=== PATIENT | female | born 1985 | race Caucasian/White ===

== ENCOUNTER 2017-11-26 16:53 | Emergency (ER) | payer BC, OTHER ==
[2017-11-26] MEDS ORDERED: Sodium Chloride 0.9% 10 ML Syringe FLUSH PRN (17:26)
--- NOTE | 2017-11-26 18:06 | EDM.PDOC ---
ED HPI GENERAL MEDICAL PROBLEM - General Chief Complaint: Neurological Problem Stated Complaint: NUMBNESS LEFT ARM/FACE Time Seen by Provider: 11/26/17 17:16 Source of Information: Reports: Patient History Limitations: Reports: No Limitations - History of Present Illness INITIAL COMMENTS - FREE TEXT/NARRATIVE: 32 y/o F with left arm numbness and left face numbness. Started around 3:30pm while she was watching TV. [place] tingling/numbness in L arm and L face. Also felt like her arm was mildly weak. Symptoms have now completely resolved. She states she's had intermittent total body numbness over the past 2 months. Comes and goes, no provoking factor. No additional weakness. States she had a two week period of blurry vision in early August that also resolved. No fever. No headache. No neck pain. No chest pain/sob/palpitations. No extremity pain. Went to clinic today with her L arm numbness and was referred here for further care. 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 Other OB/BYN History: surgical procedure Musculoskeletal History: Reports: Other (See Below) Other Musculoskeletal History: right foot surgery Endocrine/Metabolic History: Reports: Hypothyroidism - Infectious Disease History Infectious Disease History: Reports: Other (See Below) Other Infectious Disease History: HSV Social & Family History - Tobacco Use Smoking Status *Q: Never Smoker - Caffeine Use Caffeine Use: Reports: Coffee, Soda, Tea - Recreational Drug Use Recreational Drug Use: No ED ROS GENERAL - Review of Systems Review Of Systems: See Below Constitutional: Denies: Fever HEENT: Reports: Vision Change Respiratory: Denies: Shortness of Breath Cardiovascular: Denies: Chest Pain Endocrine: Reports: No Symptoms GI/Abdominal: Reports: No Symptoms : Reports: No Symptoms Musculoskeletal: Denies: Neck Pain Skin: Reports: No Symptoms Neurological: Reports: Numbness, Tingling. Denies: Headache Psychiatric: Reports: No Symptoms Hematologic/Lymphatic: Reports: No Symptoms Immunologic: Reports: No Symptoms ED EXAM, NEURO - Physical Exam Exam: See Below Exam Limited By: No Limitations General Appearance: Alert, WD/WN, No Apparent Distress Eye Exam: Bilateral Eye: EOMI, Normal Inspection, PERRL Ears: Normal External Exam Nose: Normal Inspection Throat/Mouth: Normal Inspection, Normal Oropharynx, Normal Voice, No Airway Compromise Head Exam: Atraumatic, Normocephalic Neck: Normal Inspection, Supple, Non-Tender, Full Range of Motion Respiratory/Chest: No Respiratory Distress, Lungs Clear, Normal Breath Sounds, Chest Non-Tender Cardiovascular: Normal Peripheral Pulses, Regular Rate, Rhythm, No Edema, No Murmur GI/Abdominal: Normal Bowel Sounds, Soft, Non-Tender Neurological: Alert, Normal Mood/Affect, Normal Dorsiflexion, CN II-XII Intact, Normal Plantar Flexion, Normal Gait, No Motor/Sensory Deficits, Oriented x 3 Back Exam: Normal Inspection Extremities: Normal Inspection Psychiatric: Normal Affect, Normal Mood Skin Exam: Warm, Dry, Intact, Normal Color, No Rash Course - Vital Signs Last Recorded V/S: Last Vital Signs Temp 36.7 C 11/26/17 19:18 Pulse 66 11/26/17 19:18 Resp 18 11/26/17 19:18 BP 109/73 11/26/17 19:18 Pulse Ox 100 11/26/17 19:18 - Orders/Labs/Meds Orders: Active Orders 24 hr Category Date Time Status Peripheral IV Care [RC] . DIRECTED Care 11/26/17 17:26 Active Peripheral IV Care [RC] . DIRECTED Care 11/26/17 17:27 Active Chest 1V Frontal [CR] Stat Exams 11/26/17 17:27 Taken Head wo Cont [CT] Stat Exams 11/26/17 17:24 Taken UA W/MICROSCOPIC [URIN] Stat Lab 11/26/17 18:00 Ordered Peripheral IV Insertion Adult [OM.PC] Routine Oth 11/26/17 17:26 Ordered Labs: Laboratory Tests 11/26/17 11/26/17 11/26/17 Range/Units 17:30 17:30 17:30 WBC 8.72 (3.98-10.04) K/mm3 RBC 4.62 (3.98-5.22) M/mm3 Hgb 14.1 (11.2-15.7) gm/L Hct 41.9 (34.1-44.9) % MCV 90.7 (79.4-94.8) fl MCH 30.5 (25.6-32.2) pg MCHC 33.7 (32.2-35.5) g/dl RDW Std Deviation 42.2 (36.4-46.3) fL Plt Count 258 (182-369) K/mm3 MPV 10.2 (9.4-12.3) fl Neut % (Auto) 56.9 (34.0-71.1) % Lymph % (Auto) 28.9 (19.3-51.7) % [place] % (Auto) 9.6 (4.7-12.5) % Eos % (Auto) 4.2 (0.7-5.8) Baso % (Auto) 0.3 (0.1-1.2) % Neut # (Auto) 4.95 (1.56-6.13) K/mm3 Lymph # (Auto) 2.52 (1.18-3.74) K/mm3 [place] # (Auto) 0.84 H (0.24-0.36) K/mm3 Eos # (Auto) 0.37 H (0.04-0.36) K/mm3 Baso # (Auto) 0.03 (0.01-0.08) K/mm3 PT 10.7 (9.5-12.1) SECONDS INR 0.98 Sodium 142 (136-145) mEq/L Potassium 3.9 (3.5-5.1) mEq/L Chloride 106 (98-107) mEq/L Carbon Dioxide 25 (21-32) mEq/L Anion Gap 14.9 (5-15) BUN 11 (7-18) mg/dL Creatinine 0.9 (0.55-1.02) mg/dL Est Cr Clr Drug Dosing 82.25 mL/min Estimated GFR (MDRD) > 60 (>60) mL/min BUN/Creatinine Ratio 12.2 L (14-18) Glucose 94 (74-106) mg/dL POC Glucose (70-105) mg/dL Calcium 9.1 (8.5-10.1) mg/dL Magnesium 2.1 (1.8-2.4) mg/dl Total Bilirubin 0.8 (0.2-1.0) mg/dL AST 16 (15-37) U/L ALT 25 (14-59) U/L Alkaline Phosphatase 77 (46-116) U/L Troponin I < 0.017 (0.00-0.056) ng/mL Total Protein 7.3 (6.4-8.2) g/dl Albumin 4.0 (3.4-5.0) g/dl Globulin 3.3 gm/dL Albumin/Globulin Ratio 1.2 (1-2) TSH 3rd Generation (0.358-3.74) uIU/mL Urine Color (Yellow) Urine Appearance (Clear) Urine pH (5.0-8.0) Ur Specific [place] (1.005-1.030) Urine Protein (Negative) Urine Glucose (UA) (Negative) Urine Ketones (Negative) Urine Occult Blood (Negative) Urine Nitrite (Negative) Urine Bilirubin (Negative) Urine Urobilinogen (0.2-1.0) Ur Leukocyte Esterase (Negative) Urine RBC (0-5) /hpf Urine WBC (0-5) /hpf Ur Epithelial Cells (0-5) /hpf Urine Bacteria (FEW) /hpf Urine Mucus (FEW) /hpf 11/26/17 11/26/17 11/26/17 Range/Units 17:30 17:34 18:00 WBC (3.98-10.04) K/mm3 RBC (3.98-5.22) M/mm3 Hgb (11.2-15.7) gm/L Hct (34.1-44.9) % MCV (79.4-94.8) fl MCH (25.6-32.2) pg MCHC (32.2-35.5) g/dl RDW Std Deviation (36.4-46.3) fL Plt Count (182-369) K/mm3 MPV (9.4-12.3) fl Neut % (Auto) (34.0-71.1) % Lymph % (Auto) (19.3-51.7) % [place] % (Auto) (4.7-12.5) % Eos % (Auto) (0.7-5.8) Baso % (Auto) (0.1-1.2) % Neut # (Auto) (1.56-6.13) K/mm3 Lymph # (Auto) (1.18-3.74) K/mm3 [place] # (Auto) (0.24-0.36) K/mm3 Eos # (Auto) (0.04-0.36) K/mm3 Baso # (Auto) (0.01-0.08) K/mm3 PT (9.5-12.1) SECONDS INR Sodium (136-145) mEq/L Potassium (3.5-5.1) mEq/L Chloride (98-107) mEq/L Carbon Dioxide (21-32) mEq/L Anion Gap (5-15) BUN (7-18) mg/dL Creatinine (0.55-1.02) mg/dL Est Cr Clr Drug Dosing mL/min Estimated GFR (MDRD) (>60) mL/min BUN/Creatinine Ratio (14-18) Glucose (74-106) mg/dL POC Glucose 86 (70-105) mg/dL Calcium (8.5-10.1) mg/dL Magnesium (1.8-2.4) mg/dl Total Bilirubin (0.2-1.0) mg/dL AST (15-37) U/L ALT (14-59) U/L Alkaline Phosphatase (46-116) U/L Troponin I (0.00-0.056) ng/mL Total Protein (6.4-8.2) g/dl Albumin (3.4-5.0) g/dl Globulin gm/dL Albumin/Globulin Ratio (1-2) TSH 3rd Generation 0.820 (0.358-3.74) uIU/mL Urine Color Yellow (Yellow) Urine Appearance Clear (Clear) Urine pH 6.5 (5.0-8.0) Ur Specific [place] > or = 1.030 (1.005-1.030) Urine Protein Negative (Negative) Urine Glucose (UA) Negative (Negative) Urine Ketones Negative (Negative) Urine Occult Blood Negative (Negative) Urine Nitrite Negative (Negative) Urine Bilirubin Negative (Negative) Urine Urobilinogen 0.2 (0.2-1.0) Ur Leukocyte Esterase Negative (Negative) Urine RBC 0-5 (0-5) /hpf Urine WBC 0-5 (0-5) /hpf Ur Epithelial Cells 5-10 H (0-5) /hpf Urine Bacteria Many H (FEW) /hpf Urine Mucus Moderate H (FEW) /hpf Meds: Medications Discontinued Medications Generic Name Dose Route Start Last Admin Trade Name Uriel PRN Reason Stop Dose Admin Sodium Chloride 10 ml 11/26/17 17:26 Saline Flush FLUSH ASDIRECTED PRN Keep Vein Open - Re-Assessments/Exams Free Text/Narrative Re-Assessment/Exam: 11/26/17 18:07 EKG shows nSR, no ST abnormality, T wave flattening in lead III. Intervals normal. CXR shows no acute abnormality. Labs show normal CBC, chem, lft's, TSH, and UA is concentrated but not infected. CT head shows no acute abnormality. She has a normal neurological exam here today. She has PCP f/u scheduled on Wednesday. Advised her to discuss whether referral for MRI would be appropriate at that time. Advised her to return to the ED should she have any new neurological symptoms. 11/26/17 18:46 Departure - Departure Time of Disposition: 19:00 Disposition: Home, Self-Care 01 Clinical Impression: Paresthesias - Discharge Information Instructions: Paresthesia, [id number] Referrals: Clay Stock MD [Primary Care Provider] - Forms: ED Department Discharge Additional Instructions: 1. Follow up with your primary care provider on Wednesday as planned 2. Return to the ED if you have any difficulty speaking, vision changes, weakness, or significant numbness, or other concerning symptoms - My Orders Last 24 Hours: My Active Orders 11/26/17 17:24 Head wo Cont [CT] Stat 11/26/17 17:26 Peripheral IV Care [RC] . DIRECTED Peripheral IV Insertion Adult [OM.PC] Routine 11/26/17 17:27 Peripheral IV Care [RC] . DIRECTED Chest 1V Frontal [CR] Stat 11/26/17 18:00 UA W/MICROSCOPIC [URIN] Stat - Assessment/Plan Last 24 Hours: My Active Orders 11/26/17 17:24 Head wo Cont [CT] Stat 11/26/17 17:26 Peripheral IV Care [RC] . DIRECTED Peripheral IV Insertion Adult [OM.PC] Routine 11/26/17 17:27 Peripheral IV Care [RC] . DIRECTED Chest 1V Frontal [CR] Stat 11/26/17 18:00 UA W/MICROSCOPIC [URIN] Stat
--- NOTE | 2017-11-30 12:16 | CR ---
Chest: Portable view of the chest was obtained. Comparison: No prior chest x-ray. Heart size and mediastinum are normal. Lungs are clear. Bony structures are grossly intact. Impression: 1. Nothing acute is seen on portable chest x-ray. Diagnostic code #1
--- NOTE | 2017-11-30 12:16 | CT ---
Head CT Technique: Multiple axial sections through the brain were obtained. Intravenous contrast was not utilized. Comparison: No prior intracranial imaging. Findings: Ventricles along with basal cisterns and sulci over the convexities are within normal limits for the patient's age. No abnormal parenchymal densities are seen. No evidence of intracranial hemorrhage. No midline shift or mass effect is seen. Bone window settings were reviewed which show no acute calvarial abnormality. Minimal mucosal thickening is seen within the sphenoid and ethmoid sinuses. Impression: 1. Slight sinus findings which are felt to be chronic and incidental. 2. No acute intracranial abnormality is identified. Diagnostic code #2 I agree with preliminary report from [facility], finalized at 11/26/17, 6:36 PM Central Time
== END 2017-11-26 19:19 | disposition home or self-care (01) ==
LOC: JD.ED 16:53
DX: R20.2 Paresthesia of skin (principal); E03.9 Hypothyroidism, unspecified; Z79.899 Other long term (current) drug therapy
CPT/HCPCS: 36415; 70450; 70450-26; 71045; 71045-26; 80053; 81001; 82962; 83735; 84443; 84484; 85025; 85610; 99283; 99285-25

== ENCOUNTER 2018-06-12 09:08 | Emergency (ER) | payer BC ==
--- NOTE | 2018-06-12 09:29 | EDM.PDOC ---
ED HPI GENERAL MEDICAL PROBLEM - General Chief Complaint: Neurological Problem Stated Complaint: RIGHT SIDE NUMBNESS FACE ARM AND LEG Time Seen by Provider: 06/12/18 09:19 Source of Information: Reports: Patient History Limitations: Reports: No Limitations - History of Present Illness INITIAL COMMENTS - FREE TEXT/NARRATIVE: 33-year-old female presents to the ED with a headache this morning that she awoke with and associated right facial numbness arm and leg numbness that slowly dissipating as she came to the hospital. Everything worked okay in terms was no motor dysfunction. Similar problems on the left side in the past as well. Cause is been inconclusive. She does have migraines but states his headache was fairly benign. She took 2 aspirin this morning and seemed to improve the situation. She is alert oriented and answers all questions quite appropriately. She does take thyroid replacement therapy. Takes valacyclovir daily Onset: Today Onset Date: 06/12/18 Onset Time: 08:00 (Toes are present when she awoke with a headache and right facial arm and leg numbness and tingling.) Duration: Improving (We will gone by the time she came to the ED except for in her right foot.) Location: Reports: Face (Right face), Upper Extremity, Right, Lower Extremity, Right (Right lower extremity including her foot.) Quality: Reports: Other Severity: Moderate (Anesthesia as a numbness and tingling) Improves with: Reports: Other (Got better after taking 2 aspirins headache is nearly gone as well.) Worsens with: Reports: None Context: Denies: Activity, Exercise, Lifting, Sick Contact, Trauma Associated Symptoms: Denies: No Other Symptoms, Confusion, Chest Pain, cough w sputum, Diaphoresis, Fever/Chills, Headaches, Loss of Appetite, Malaise 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 (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) (Patient took 2 aspirins this morning with) Headache Pain Score (Numeric/FACES): 3 - Related Data Allergies Allergy/AdvReac Type Severity Reaction Status Date / Time No Known Allergies Allergy Verified 06/12/18 09:15 Home Meds: Home Meds Levothyroxine Sodium [Synthroid] 100 mcg PO DAILY 11/26/17 [History] valACYclovir [Valtrex] 1,000 mg PO DAILY 11/26/17 [History] Cholecalciferol (Vitamin D3) [Vitamin D3] 1 tab PO DAILY 06/12/18 [History] Cyanocobalamin (Vitamin B12) [Vitamin B12] 1 tab PO DAILY 06/12/18 [History] Folic Acid 1 tab PO DAILY 06/12/18 [History] Past Medical History 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 Other SPEECH/LANGUAGE THERAPIST History: surgical procedure Musculoskeletal History: Reports: Other (See Below) Other Musculoskeletal History: right foot surgery Endocrine/Metabolic History: Reports: Hypothyroidism - Infectious Disease History Infectious Disease History: Reports: Other (See Below) Other Infectious Disease History: HSV Social & Family History - Tobacco Use Smoking Status *Q: Never Smoker - Caffeine Use Caffeine Use: Reports: Coffee, Soda - Recreational Drug Use Recreational Drug Use: No - Living Situation & Occupation Living situation: Reports: Occupation: Employed ED ROS GENERAL - Review of Systems Review Of Systems: See Below Constitutional: Reports: Fatigue. Denies: Fever, Chills, Malaise, Weakness Respiratory: Reports: No Symptoms Cardiovascular: Reports: No Symptoms Endocrine: Reports: Fatigue GI/Abdominal: Reports: No Symptoms : Reports: No Symptoms Musculoskeletal: Reports: No Symptoms Skin: Reports: No Symptoms Neurological: Reports: Numbness (Right face right arm and right leg this morning. We will gone by the time I'm seeing her), Paresthesia, Tingling Psychiatric: Reports: No Symptoms Hematologic/Lymphatic: Reports: No Symptoms ( seizures consisted of numbness and tingling right anisha-face right arm and right foot particularly) Immunologic: Reports: No Symptoms ED EXAM, NEURO - Physical Exam Exam: See Below Exam Limited By: No Limitations General Appearance: WD/WN, Anxious (Mildly anxious.), Mild Distress Eye Exam: Bilateral Eye: Normal Fundi, Normal Inspection, PERRL Ears: Normal TMs Nose: Normal Inspection Throat/Mouth: Normal Inspection, Normal Lips, Normal Teeth, Normal Oropharynx Head Exam: Atraumatic, Normocephalic Neck: Normal Inspection, Supple, Non-Tender, Full Range of Motion. No: Lymphadenopathy (L), Lymphadenopathy (R) Respiratory/Chest: No Respiratory Distress, Lungs Clear, Normal Breath Sounds, No Accessory Muscle Use, Chest Non-Tender Cardiovascular: Normal Peripheral Pulses, Regular Rate, Rhythm, No Edema, No Gallop, No Murmur, No Rub GI/Abdominal: Normal Bowel Sounds, Soft, Non-Tender, No Organomegaly, No Abnormal Bruit Neurological: Alert, Normal Mood/Affect, Normal Dorsiflexion, CN II-XII Intact, Normal Gait, Normal Reflexes, Oriented x 3, Other (Normal finger to nose normal rapid alternating movements normal heel to marinelli normal Romberg. The mid skin negative. Exam is completely normal.) DTR: 2+: Bicep (R), Bicep (L), Patella (R), Patella (L) Extremities: Normal Inspection, Normal Range of Motion, Non-Tender, No Pedal Edema, Normal Capillary Refill Psychiatric: Normal Affect, Normal Mood Skin Exam: Warm, Dry, Intact, Normal Color, No Rash Course - Vital Signs Last Recorded V/S: Last Vital Signs Temp 36.3 C 06/12/18 09:11 Pulse 75 06/12/18 09:11 Resp 18 06/12/18 09:11 BP 130/73 06/12/18 09:11 Pulse Ox 100 06/12/18 09:11 - Orders/Labs/Meds Labs: Laboratory Tests 06/12/18 06/12/18 Range/Units 09:28 09:28 WBC 6.73 (3.98-10.04) K/mm3 RBC 4.27 (3.98-5.22) M/mm3 Hgb 13.3 (11.2-15.7) gm/L Hct 40.4 (34.1-44.9) % MCV 94.6 (79.4-94.8) fl MCH 31.1 (25.6-32.2) pg MCHC 32.9 (32.2-35.5) g/dl RDW Std Deviation 41.1 (36.4-46.3) fL Plt Count 271 (182-369) K/mm3 MPV 10.0 (9.4-12.3) fl Neutrophils % (Manual) 56 (40-60) % Band Neutrophils % 0 (0-10) % Lymphocytes % (Manual) 36 (20-40) % Atypical Lymphs % 0 % Monocytes % (Manual) 3 (2-10) % Eosinophils % (Manual) 5 (0.7-5.8) % Basophils % (Manual) 0 L (0.1-1.2) Platelet Estimate Adequate Plt Morphology Comment Normal RBC Morph Comment Normal Sodium 142 (136-145) mEq/L Potassium 4.1 (3.5-5.1) mEq/L Chloride 106 (98-107) mEq/L Carbon Dioxide 27 (21-32) mEq/L Anion Gap 13.1 (5-15) BUN 11 (7-18) mg/dL Creatinine 0.8 (0.55-1.02) mg/dL Est Cr Clr Drug Dosing 91.68 mL/min Estimated GFR (MDRD) > 60 (>60) mL/min BUN/Creatinine Ratio 13.8 L (14-18) Glucose 91 (74-106) mg/dL Calcium 9.2 (8.5-10.1) mg/dL Magnesium 2.1 (1.8-2.4) mg/dl Total Bilirubin 1.1 H (0.2-1.0) mg/dL AST 16 (15-37) U/L ALT 23 (14-59) U/L Alkaline Phosphatase 61 (46-116) U/L Total Protein 7.0 (6.4-8.2) g/dl Albumin 4.0 (3.4-5.0) g/dl Globulin 3.0 gm/dL Albumin/Globulin Ratio 1.3 (1-2) - Radiology Interpretation Free Text/Narrative:: 33-year-old female presents the ED with awakening with a headache which was diffuse and not localized to one side of her head or the other. Associated right hemifacial numbness tingling as well as right arm numbness and tingling and right foot numbness and chin. As was around 0800 hrs. this morning. Surgically the numbness in taking his pupil dissipated except in her right foot. Complete neuro exam shows no loss of motor power and tone. Reflexes are intact. [id number] rapid belching movements and finger to nose assessment are normal. Negative Romberg sign. Can explain her symptoms other than perhaps atypical migraine. CT head will be done. - Re-Assessments/Exams Free Text/Narrative Re-Assessment/Exam: 06/12/18 10:39 CT head has been completed and is essentially completely normal. There is no evidence of any intracranial hemorrhage midline shift or mass effect.Labs have returned. Normal white count at 6.73 with normal differential 56% neutrophils no bands cells reported. Hemoglobin is 13.3 with hematocrit of 40.4. MCV is normal at 94.6. Platelet count 271,000. Chemistry shows a sodium of 142 with a potassium of 4.1. Chloride 106 with a bicarbonate of 27. Anion gap is 13.1. BUN is 11 with a creatinine of 0.8. GFR is greater than 60. Glucose is 91 calcium is 9.2. Magnesium 2.1. Total bilirubin 1.1. Remainder the liver function studies are normal. Total protein is 7.0 with an albumin fraction of 4.0. 06/12/18 10:45 patient is symptom-free at this time. I suspect these are atypical migraine since she awoke with a headache that was a little bit worse on the left as compared to the right. This also happened she has had symptoms on the left side in the past. Went through typical foods that like to precipitate migraines. At this time she is symptom-free and will be discharged to home. Departure - Departure Time of Disposition: 10:45 Disposition: Home, Self-Care 01 Condition: Fair Clinical Impression: Paresthesia of right arm and leg, Atypical migraine - Discharge Information *PRESCRIPTION DRUG MONITORING PROGRAM REVIEWED*: Not Applicable *COPY OF PRESCRIPTION DRUG MONITORING REPORT IN PATIENT BARBIE: Not Applicable Instructions: Paresthesia Referrals: Camila Hernández NP [Primary Care Provider] - Forms: ED Department Discharge Additional Instructions: Evaluation the emergency room today in regards to awakening with a significant headache improved with 2 aspirins. Associated symptoms were that of right hemifacial right arm and right leg numbness and tingling which we call paresthesias. There was no motor deficits in terms that everything worked normally. Neuro exam done in the ED was completely normal. CT of the head was done to rule out a mass effect from any lesion in the brain and none was found. There was no evidence of an intracranial hemorrhage or aneurysm either. Since the symptoms come and go or what we call transient and improve every time I believe these are likely atypical migraines. As we discussed monitoring her diet closely for potential precipitants of protocol migraine triggers is advised. At this time plenty of fluids today and regular meals. Suggest follow- up with Dr. Melita Blanchard a physician at [facility] can set you up with neurology services.
--- NOTE | 2018-06-12 10:18 | CT ---
Head CT Technique: Multiple axial sections through the brain were obtained. Intravenous contrast was not utilized. Comparison: Prior head CT exam of 11/26/17. Findings: Ventricles along with basal cisterns and sulci over the convexities are within normal limits for the patient's age. No abnormal parenchymal densities are seen. No evidence of intracranial hemorrhage. No midline shift or mass effect is seen. Bone window settings were reviewed which shows no acute calvarial abnormality. Very minimal areas of mucosal thickening are seen within the sinuses which are incidental. Impression: 1. Nothing acute is appreciated on noncontrast head CT exam. No significant change from previous exam is seen. Diagnostic code #1
== END 2018-06-12 10:53 | disposition home or self-care (01) ==
LOC: JD.ED 09:08
DX: G43.809 Other migraine, not intractable, without status migrainosus (principal); R20.2 Paresthesia of skin; E03.9 Hypothyroidism, unspecified; Z79.899 Other long term (current) drug therapy
CPT/HCPCS: 36415; 70450; 70450-26; 80053; 83735; 85007; 85027; 99285-25

== ENCOUNTER 2018-09-09 00:04 | Emergency (ER) | payer BC ==
--- NOTE | 2018-09-09 00:31 | EDM.PDOC ---
ED HPI GENERAL MEDICAL PROBLEM - General Chief Complaint: General Stated Complaint: BLOOD PRESSURE CHECK Time Seen by Provider: 09/09/18 00:20 Source of Information: Reports: Patient History Limitations: Reports: No Limitations - History of Present Illness INITIAL COMMENTS - FREE TEXT/NARRATIVE: The patient was in bed trying to go to sleep when she got lightheaded and dizzy. Before bed she was feeling fine. She then had some pain and cramping in her legs. She now has some nausea and upper abdominal pain. She has no vomiting, fever, chills, cough, chest pain, or shortness of breath. She did have some diarrhea. She has had odd problems recently with her stomach and neurologic issues. She has been seen at [facility] and she will be going back there soon. Her dad is a physician and she talked to him tonight and he recommended getting a cortisol level. Onset: Sudden Duration: Hour(s): Location: Reports: Abdomen Quality: Reports: Ache Severity: Mild Improves with: Reports: None Worsens with: Reports: None Associated Symptoms: Reports: Nausea/Vomiting. 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: 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 Other SEATING UPHOLSTERER History: surgical procedure Musculoskeletal History: Reports: Other (See Below) Other Musculoskeletal History: right foot surgery Endocrine/Metabolic History: Reports: Hypothyroidism - Infectious Disease History Infectious Disease History: Reports: Other (See Below) Other Infectious Disease History: HSV Social & Family History - Family History Family Medical History: Noncontributory - Tobacco Use Smoking Status *Q: Never Smoker - Caffeine Use Caffeine Use: Reports: None - Recreational Drug Use Recreational Drug Use: No - Living Situation & Occupation Living situation: Reports: Occupation: Employed ED ROS GENERAL - Review of Systems Review Of Systems: See Below Constitutional: Reports: No Symptoms HEENT: Reports: No Symptoms Respiratory: Reports: No Symptoms Cardiovascular: Reports: No Symptoms Endocrine: Reports: No Symptoms GI/Abdominal: Reports: Abdominal Pain, Diarrhea, Nausea. Denies: Vomiting : Reports: No Symptoms Musculoskeletal: Reports: Other (Leg pain) ED EXAM, GENERAL - Physical Exam Exam: See Below Exam Limited By: No Limitations General Appearance: Alert, No Apparent Distress Ears: Normal External Exam Nose: Normal Inspection Head: Atraumatic, Normocephalic Neck: Normal Inspection Respiratory/Chest: No Respiratory Distress, Lungs Clear, Normal Breath Sounds Cardiovascular: Regular Rate, Rhythm, No Edema, No Murmur GI/Abdominal: Soft, Non-Tender, No Organomegaly, No Mass Back Exam: Normal Inspection Extremities: Normal Inspection Course - Vital Signs Last Recorded V/S: Last Vital Signs Temp 96.7 F 09/09/18 00:10 Pulse 98 09/09/18 00:10 Resp 16 09/09/18 00:10 BP 132/71 09/09/18 00:10 Pulse Ox 98 09/09/18 00:10 - Orders/Labs/Meds Orders: Active Orders 24 hr Category Date Time Status Cardiac Monitoring [RC] . DIRECTED Care 09/09/18 00:26 Active CORTISOL [REF] Stat Lab 09/09/18 00:27 Ordered Labs: Laboratory Tests 09/09/18 09/09/18 09/09/18 Range/Units 00:35 00:35 00:35 WBC 9.27 (3.98-10.04) K/mm3 RBC 4.27 (3.98-5.22) M/mm3 Hgb 13.5 (11.2-15.7) gm/L Hct 39.6 (34.1-44.9) % MCV 92.7 (79.4-94.8) fl MCH 31.6 (25.6-32.2) pg MCHC 34.1 (32.2-35.5) g/dl RDW Std Deviation 39.8 (36.4-46.3) fL Plt Count 260 (182-369) K/mm3 MPV 9.8 (9.4-12.3) fl Neut % (Auto) 47.3 (34.0-71.1) % Lymph % (Auto) 38.4 (19.3-51.7) % [place] % (Auto) 8.8 (4.7-12.5) % Eos % (Auto) 5.0 (0.7-5.8) Baso % (Auto) 0.4 (0.1-1.2) % Neut # (Auto) 4.38 (1.56-6.13) K/mm3 Lymph # (Auto) 3.56 (1.18-3.74) K/mm3 [place] # (Auto) 0.82 H (0.24-0.36) K/mm3 Eos # (Auto) 0.46 H (0.04-0.36) K/mm3 Baso # (Auto) 0.04 (0.01-0.08) K/mm3 Sodium 139 (136-145) mEq/L Potassium 3.7 (3.5-5.1) mEq/L Chloride 105 (98-107) mEq/L Carbon Dioxide 26 (21-32) mEq/L Anion Gap 11.7 (5-15) BUN 13 (7-18) mg/dL Creatinine 0.9 (0.55-1.02) mg/dL Est Cr Clr Drug Dosing 81.50 mL/min Estimated GFR (MDRD) > 60 (>60) mL/min BUN/Creatinine Ratio 14.4 (14-18) Glucose 96 (74-106) mg/dL Calcium 9.3 (8.5-10.1) mg/dL Magnesium 1.9 (1.8-2.4) mg/dl Total Bilirubin 1.2 H (0.2-1.0) mg/dL AST 12 L (15-37) U/L ALT 19 (14-59) U/L Alkaline Phosphatase 54 (46-116) U/L Total Protein 7.3 (6.4-8.2) g/dl Albumin 4.2 (3.4-5.0) g/dl Globulin 3.1 gm/dL Albumin/Globulin Ratio 1.4 (1-2) Lipase 87 (73-393) U/L TSH 3rd Generation 1.410 (0.358-3.74) uIU/mL HCG, Qual Negative (NEGATIVE) - Re-Assessments/Exams Free Text/Narrative Re-Assessment/Exam: 09/09/18 00:31 I will order some labs. 09/09/18 01:40 Her CBC and CMP look good. Her HCG is negative. I will get the cortisol results in a week. I will call her with those. Departure - Departure Time of Disposition: 01:45 Disposition: Home, Self-Care 01 Condition: Good Clinical Impression: Nausea Abdominal pain Qualifiers: Abdominal location: upper abdomen, unspecified Qualified Code(s): R10.10 - Upper abdominal pain, unspecified - Discharge Information *PRESCRIPTION DRUG MONITORING PROGRAM REVIEWED*: Not Applicable *COPY OF PRESCRIPTION DRUG MONITORING REPORT IN PATIENT BARBIE: Not Applicable Referrals: Camila Hernández NP [Primary Care Provider] - 1 Week Forms: ED Department Discharge Additional Instructions: Get some rest when you get home. Drink plenty of fluids. Please return if you are worse. - My Orders Last 24 Hours: My Active Orders 09/09/18 00:26 Cardiac Monitoring [RC] . DIRECTED 09/09/18 00:27 CORTISOL [REF] Stat - Assessment/Plan Last 24 Hours: My Active Orders 09/09/18 00:26 Cardiac Monitoring [RC] . DIRECTED 09/09/18 00:27 CORTISOL [REF] Stat
== END 2018-09-09 01:48 | disposition home or self-care (01) ==
LOC: JD.ED 00:04
DX: R10.10 Upper abdominal pain, unspecified (principal); Z79.899 Other long term (current) drug therapy
CPT/HCPCS: 36415; 80053; 82533; 83690; 83735; 84443; 84703; 85025; 99282; 99284

== ENCOUNTER 2021-03-13 05:35 | Inpatient (IN) | payer OTHER ==
--- NOTE | 2021-03-12 09:05 | PCM.LDHP ---
L&D History of Present Illness - General Date of Service: 03/12/21 Admit Problem/Dx: Admission Diagnosis/Problem Admission Diagnosis/Problem 03/12/21 12:28 of 39 completed weeks gestation Genital herpes outbreak with a vaginal lesion. - History of Present Illness Introduction:: Jade is a 36-year-old G1, P0 female at 39 weeks 5 days. She will be 39 weeks 6 days on the day of anticipated delivery. thus far has been uncomplicated. She has a history of hypothyroidism that has been well controlled. Past medical history is otherwise unremarkable with exception of chronic recurrent herpes. She gets both genital and oral lesions. For the past couple weeks she has had recurrence of various lesions both orally and one lesion on the posterior vulva. It has been healing slowly but is still present. She does admit to tingling and prodromal type symptoms of the vulva today despite using Valtrex 1000 mg twice daily. For these reasons it was recommended that we proceed with primary section for delivery. She denies problems with prior anesthesia, easy bleeding, easy bruising, history of blood clots. Surgical history is remarkable for prior diagnostic laparoscopy for endometriosis. OB Labs: Blood Type: A+ Ab screen: Negative Hep B sAg: Negative HCV: negative HIV: Negative RPR: Negative Rubella: Immune GC/Chlamydia: Negative Glucose screen: Passed 1 hr GBS: Negative - Related Data Allergies/Adverse Reactions: Allergies Allergy/AdvReac Type Severity Reaction Status Date / Time No Known Allergies Allergy Verified 03/13/21 03:23 Home Medications: Home Meds Levothyroxine Sodium [Synthroid] 112 mcg PO DAILY 11/26/17 [History] valACYclovir [Valtrex] 1,000 mg PO BID 11/26/17 [History] Pnv No.95/Ferrous Fum/Folic AC [ Tablet] 1 each PO DAILY 03/12/21 [Hist ory] Past Medical History 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 Endocrine/Metabolic History: Reports: Hypothyroidism - Infectious Disease History Infectious Disease History: Reports: Other (See Below) Other Infectious Disease History: HSV Social & Family History - Family History Family Medical History: No Pertinent Family History - Caffeine Use Caffeine Use: Reports: Coffee, Soda, Tea - Living Situation & Occupation Living situation: Reports: Occupation: Employed H&P Review of Systems - Review of Systems: Review Of Systems: See Below Free Text/Narrative: General: No fever, chills, malaise, body aches, night sweats, weight loss HEENT: No eye pain or discharge, no ear pain or loss of hearing, no nasal congestion, sore throat Cardiovascular: No chest pain, shortness of breath, palpitations, leg swelling Respiratory: No cough, wheezing, dyspnea on exertion, PND GI: No abdominal pain, nausea, vomiting, diarrhea, constipation, bloody stools : No dysuria, frequency, incontinence Musculoskeletal: No joint swelling or pain, myalgias Skin: No rash, pruritus, sores or other lesions Neuro: No headaches, dizziness, paresthesias, focal weakness Psych: No anxiety, depression, suicidal ideation Heme: No easy bleeding or bruising, no swollen lymph nodes L&D Exam - Exam Exam: See Below - Vital Signs Vital Signs: Weight 191 pounds; BP 138/78 - Exam General: Alert, Oriented HEENT: Conjunctiva Clear, Pupils Equal, Pupils Reactive Neck: Supple, Trachea Midline Lungs: Clear to Auscultation, Normal Respiratory Effort Cardiovascular: Regular Rate, Regular Rhythm, Normal S1, Normal S2 Extremities: Normal Inspection, Non-Tender, No Pedal Edema Skin: Warm, Dry, Intact Psychiatric: Alert, Normal Affect, Normal Mood - Patient Data Result Diagrams: 03/13/21 06:00 - Problem List (1) with 39 completed weeks gestation SNOMED Code(s): 21296883 ICD Code: Z3A.39 - 39 WEEKS GESTATION OF Status: Acute Current Visit: Yes (2) Genital herpes affecting SNOMED Code(s): 85658854 ICD Code: O98.319 - OTH INFECT W SEXL MODE OF TRANSMISS COMP PREG, UNSP TRI; A60.09 - HERPESVIRAL INFECTION OF OTHER UROGENITAL TRACT Status: Acute Current Visit: Yes Problem List Initiated/Reviewed/Updated: Yes Assessment/Plan Comment:: 36 yo female at 39wks 6days presenting for primary section secondary to active genital herpes lesion. Proceed with surgery as scheduled. Anc for prophylaxis. Routine preoperative cares. Daphne Grossman MD Family Medicine
[2021-03-13] MEDS ORDERED: Sodium Chloride 0.9% 10 ML Syringe FLUSH PRN (06:00)
[2021-03-13] MEDS: Lactated Ringers 1,000 ML IV SCH ×2 (06:06→07:18)
[2021-03-13] MEDS ORDERED: Metoclopramide 10 MG/2 ML SDV IVPUSH ONE (07:00)
[2021-03-13] MEDS ORDERED: Citric Acid/Sodium Citrate Solution 30 ML Cup PO ONE (07:00)
[2021-03-13] MEDS ORDERED: Phenylephrine 1% 10 MG/ML SDV ONE (07:17)
[2021-03-13] MEDS ORDERED: Morphine PF 10 MG/10 ML SDV ONE (07:17)
[2021-03-13] MEDS ORDERED: ceFAZolin 1 GM Vial ONE (07:17)
[2021-03-13] MEDS ORDERED: Oxytocin 10 Units/1 ML SDV ONE (07:22)
[2021-03-13] MEDS ORDERED: Ketorolac 30 MG/ML SDV ONE (07:22)
[2021-03-13] MEDS ORDERED: Bupivacaine 0.5% 30 ML SDV ONE (07:27)
--- NOTE | 2021-03-13 07:38 | PCM.PREANE ---
Preanesthetic Assessment - Procedure Proposed Procedure: Primary - Anesthesia/Transfusion/Family Hx Anesthesia History: Prior Anesthesia Without Reaction Family History of Anesthesia Reaction: No Transfusion History: No Prior Transfusion(s) - Review of Systems General: No Symptoms Pulmonary: No Symptoms Cardiovascular: No Symptoms Gastrointestinal: No Symptoms Neurological: No Symptoms Other: Reports: Thyroid Problems (hypothyroid) - Physical Assessment NPO Status Date: 03/12/21 NPO Status Time: 00:00 Vital Signs: Last Vital Signs Temp 37.0 C 03/13/21 05:55 Pulse 94 03/13/21 05:55 Resp 16 03/13/21 05:55 BP 139/81 03/13/21 06:30 Pulse Ox 99 03/13/21 05:55 Height: 1.65 m Weight: 86.381 kg ASA Class: 2 Mental Status: Alert & Oriented x3 Airway Class: Mallampati = 1 Dentition: Reports: Normal Dentition Thyro-Mental Finger Breadths: 3 Mouth Opening Finger Breadths: 3 ROM/Head Extension: Full Lungs: Clear to Auscultation, Normal Respiratory Effort Cardiovascular: Regular Rate, Regular Rhythm - Lab Values: Laboratory Last Values WBC 10.34 K/mm3 (3.98-10.04) H 03/13/21 06:00 RBC 3.86 M/mm3 (3.98-5.22) L 03/13/21 06:00 Hgb 11.7 gm/dl (11.2-15.7) 03/13/21 06:00 Hct 35.4 % (34.1-44.9) 03/13/21 06:00 MCV 91.7 fl (79.4-94.8) 03/13/21 06:00 MCH 30.3 pg (25.6-32.2) 03/13/21 06:00 MCHC 33.1 g/dl (32.2-35.5) 03/13/21 06:00 RDW Std Deviation 43.0 fL (36.4-46.3) 03/13/21 06:00 Plt Count 198 K/mm3 (182-369) 03/13/21 06:00 MPV 11.0 fl (9.4-12.3) 03/13/21 06:00 Neut % (Auto) 61.4 % (34.0-71.1) 03/13/21 06:00 Lymph % (Auto) 27.8 % (19.3-51.7) 03/13/21 06:00 [place] % (Auto) 8.8 % (4.7-12.5) 03/13/21 06:00 Eos % (Auto) 1.4 (0.7-5.8) 03/13/21 06:00 Baso % (Auto) 0.2 % (0.1-1.2) 03/13/21 06:00 Neut # (Auto) 6.36 K/mm3 (1.56-6.13) H 03/13/21 06:00 Lymph # (Auto) 2.87 K/mm3 (1.18-3.74) 03/13/21 06:00 [place] # (Auto) 0.91 K/mm3 (0.24-0.36) H 03/13/21 06:00 Eos # (Auto) 0.14 K/mm3 (0.04-0.36) 03/13/21 06:00 Baso # (Auto) 0.02 K/mm3 (0.01-0.08) 03/13/21 06:00 - Allergies Allergies/Adverse Reactions: Allergies Allergy/AdvReac Type Severity Reaction Status Date / Time No Known Allergies Allergy Verified 03/13/21 03:23 - Anesthesia Plan Pre-Op Medication Ordered: None - Acknowledgements Anesthesia Type Planned: Spinal Pt an Appropriate Candidate for the Planned Anesthesia: Yes Alternatives and Risks of Anesthesia Discussed w Pt/Guardian: Yes Pt/Guardian Understands and Agrees with Anesthesia Plan: Yes PreAnesthesia Questionnaire Gastrointestinal History: Reports: GERD 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 Endocrine/Metabolic History: Reports: Hypothyroidism Other Dermatologic History: Pt states she has bruise on her left thigh from a massage - Infectious Disease History Infectious Disease History: Reports: Herpes, Other (See Below) Other Infectious Disease History: HSV - SUBSTANCE USE Tobacco Use Status *Q: Never Tobacco User Second Hand Smoke Exposure: No Days Per Week of Alcohol Use: 0 Number of Drinks Per Day: 0 Total Drinks Per Week: 0 Recreational Drug Use History: No - HOME MEDS Home Medications: Home Meds Levothyroxine Sodium [Synthroid] 112 mcg PO DAILY 11/26/17 [History] valACYclovir [Valtrex] 1,000 mg PO BID 11/26/17 [History] Pnv No.95/Ferrous Fum/Folic AC [ Tablet] 1 each PO DAILY 03/12/21 [History] - CURRENT (IN HOUSE) MEDS Current Meds: Current Medications Cefazolin Sodium/Dextrose 2 gm (/ Premix) 50 mls @ 100 mls/hr IV ONETIME ONE Stop: 03/13/21 08:14 Oxytocin/Lactated Ringer's (Pitocin In Lr 10 Units/1,000 Ml) 10 unit in 1,000 mls @ 100 mls/hr IV ASDIRECTED JOSE CARLOS Lactated Ringer's (Ringers, Lactated) 1,000 mls @ 125 mls/hr IV ASDIRECTED JOSE CARLOS Last Admin: 03/13/21 07:18 Dose: 125 mls/hr Documented by: Sodium Chloride (Sodium Chloride 0.9% 10 Ml Syringe) 10 ml FLUSH ASDIRECTED PRN PRN Reason: Keep Vein Open Discontinued Medications Bupivacaine HCl (Bupivacaine 0.5% 30 Ml Sdv) Confirm Administered Dose 30 ml .ROUTE .STK-MED ONE Stop: 03/13/21 07:28 Cefazolin Sodium (Cefazolin 1 Gm Vial) Confirm Administered Dose 2 gm .ROUTE .STK-MED ONE Stop: 03/13/21 07:18 Citric Acid/Sodium Citrate (Citric Acid/Sodium Citrate Solution 30 Ml Cup) 30 ml PO ONETIME ONE Stop: 03/13/21 07:01 Last Admin: 03/13/21 07:14 Dose: 30 ml Documented by: Ketorolac Tromethamine (Ketorolac 30 Mg/Ml Sdv) Confirm Administered Dose 30 mg .ROUTE .STK-MED ONE Stop: 03/13/21 07:23 Metoclopramide HCl (Metoclopramide 10 Mg/2 Ml Sdv) 10 mg IVPUSH ONETIME ONE Stop: 03/13/21 07:01 Last Admin: 03/13/21 07:11 Dose: 10 mg Documented by: Morphine Sulfate (Morphine Pf 10 Mg/10 Ml Sdv) Confirm Administered Dose 10 mg .ROUTE .STK-MED ONE Stop: 03/13/21 07:18 Oxytocin (Oxytocin 10 Units/1 Ml Sdv) Confirm Administered Dose 10 unit .ROUTE .STK-MED ONE Stop: 03/13/21 07:23 Phenylephrine HCl (Phenylephrine 1% 10 Mg/Ml Sdv) Confirm Administered Dose 10 mg .ROUTE .STK-MED ONE Stop: 03/13/21 07:18
[2021-03-13] MEDS ORDERED: ceFAZolin 2 GM in Premix Bag 1 BAG IV ONE (07:45)
[2021-03-13] MEDS ORDERED: Oxytocin/Lactated Ringers 10 UNIT/1,000 ML BAG IV SCH (08:00)
[2021-03-13] MEDS ORDERED: Lactated Ringers 1,000 ML ONE (08:40)
--- NOTE | 2021-03-13 08:58 | PCM.POSTAN ---
POST ANESTHESIA ASSESSMENT - MENTAL STATUS Mental Status: Alert, Oriented - VITAL SIGNS Vital Signs: Last Vital Signs Temp 37.0 C 03/13/21 05:55 Pulse 94 03/13/21 05:55 Resp 16 03/13/21 05:55 BP 139/81 03/13/21 06:30 Pulse Ox 99 03/13/21 05:55 - RESPIRATORY Respiratory Status: Respiratory Rate WNL, Airway Patent, O2 Saturation Stable - CARDIOVASCULAR CV Status: Pulse Rate WNL, Blood Pressure Stable - GASTROINTESTINAL GI Status: No Symptoms - PAIN Pain Score: 0 - POST OP HYDRATION Hydration Status: Adequate & Stable - OBSERVATIONS Free Text/Narrative:: no anesthesia complications noted
--- NOTE | 2021-03-13 09:06 | PCM.PRNOTE ---
- Free Text/Narrative Note: Date: 03/13/2021 Patient: Jade Pritchett : 1985 Surgeon: Daphne Grossman MD [place] Instructor(s): Tammy Graves MD Melgoza: Ruel Bower MD Pre-Procedure Diagnosis: at 39 weeks gestation, active genital herpes lesion. Post-Procedure Diagnosis: Same Procedure(s): primary vacuum-assisted low-transverse section via Pfannenstiel incision Findings: clear amniotic fluid, viable female infant delivered from cephalic presentation with Apgars 7 and 9 at 1 and 5 minutes, respectively Anesthesia: Spinal Complications: None Fluids: 2600 mL crystalloid Drains: Alford catheter with 275 mL clear yellow urine Specimen(s) Type: none Estimated Blood Loss: 900 mL Indication: Jade Pritchett is a 36 year old G1, now P1 female at 39 6/7wks who presented for scheduled primary section secondary to active genital herpes lesion. She had been previously consented for the above procedure, see preoperative documentation for details. Procedure: The patient was taken to the OR where spinal anesthesia was placed without difficulty and found to be adequate. She was placed in the dorsal supine position with a left-lateral tilt. She was prepped and draped with an antiseptic solution in the usual sterile fashion. She received 2 gm IV cefazolin for infection prophylaxis. Surgical timeout was performed, all parties in agreement to proceed. A Pfannenstiel skin incision was made with the scalpel and carried through to the underlying layer of fascia. The fascia was nicked in the midline and extended laterally with Segal scissors. The superior aspect of the fascia was elevated with Balta clamps and the underlying rectus muscles were dissected off the fascia with monopolar energy. The inferior aspect of the fascia was similarly elevated, and the underlying rectus and pyramidalis muscles were dissected off bluntly and with monopolar energy. The r ectus muscles were bluntly in the midline, and the peritoneum was entered bluntly. The peritoneum was extended superiorly and inferiorly with good visualization of the bladder and then stretched. The bladder blade was inserted, and the vesicouterine peritoneum was identified, incised and the plane developed to create a bladder flap, and the bladder blade was placed to retract the bladder away from the operative field. The lower uterine segment was incised in a transverse fashion using the scalpel and extended with bilateral upward tension. Clear fluid was noted. The infant was noted to be in cephalic presentation, and gentle pressure was used to elevate the infant's head to the hysterotomy with attention paid to not using the hysterotomy as a fulcrum. Gentle fundal pressur e was performed to facilitate delivery of the 's head several times without success and so a Kiwi vacuum was applied. There were 2 pulls and 1 pop off prior to successful delivery of the head, followed by delivery of the shoulders and body without difficulty. The cord was clamped and cut, and the was subsequently handed to the awaiting nursery staff. Cord blood was taken. The placenta was delivered spontaneously intact. The uterus became firm with massage and IV Pitocin, and was exteriorized and cleared of all clots and debris. The hysterotomy was inspected with no extensions noted, and was then repaired primarily in a running locked fashion using 0-Vicryl suture, followed by a second layer of imbricating 0-Vicryl suture. Hemostasis was noted. Both tubes and ovaries were visualized and noted to be normal. The pericolic gutters were wiped with a lap sponge bilaterally, and the uterus was returned to the abdomen. The uterine incision was reexamined and was noted to be hemostatic. The fascia was closed with 0-Vicryl suture in a running fashion, the subcutaneous layer was not closed, and the skin was closed with subcuticular 4-0 Vicryl. Sponge, lap, and instrument counts were reported correct x 2. The patient tolerated the procedure well, and was subsequently transferred to the recovery room in stable condition. Daphne Grossman MD Family Medicine
[2021-03-13] MEDS ORDERED: ePHEDrine 50 MG/ML SDV IVPUSH PRN (10:58)
[2021-03-13] MEDS ORDERED: Acetaminophen/oxyCODONE 325-5 MG Tab PO PRN (10:58)
[2021-03-13] MEDS ORDERED: Dextrose 5%-Lactated Ringers 1,000 ML IV SCH (10:58)
[2021-03-13] MEDS ORDERED: diphenhydrAMINE 50 MG/ML SDV IVPUSH PRN (10:58)
[2021-03-13] MEDS ORDERED: Naloxone 0.4 MG/ML SDV IVPUSH PRN (10:58)
[2021-03-13] MEDS: Ketorolac 30 MG/ML SDV IVPUSH SCH ×2 (14:48→19:57)
[2021-03-14] MEDS: Ketorolac 30 MG/ML SDV IVPUSH SCH (02:08)
--- NOTE | 2021-03-14 07:47 | PCM48HPAN ---
Post Anesthesia Note - EVALUATION WITHIN 48HRS OF ANESTHETIC Vital Signs in Normal Range: Yes Patient Participated in Evaluation: Yes Respiratory Function Stable: Yes Airway Patent: Yes Cardiovascular Function Stable: Yes Hydration Status Stable: Yes Pain Control Satisfactory: Yes Nausea and Vomiting Control Satisfactory: Yes Mental Status Recovered: Yes Vital Signs: Last Vital Signs Temp 97.6 F 03/14/21 04:00 Pulse 81 03/14/21 04:06 Resp 15 03/14/21 05:52 BP 114/53 L 03/14/21 04:06 Pulse Ox 100 03/14/21 05:52 - COMMENTS/OBSERVATIONS Free Text/Narrative:: Patient resting in bed when visiting with patient. Patient stated that she was "very happy" with her spinal and experience. Patient complained of mild back pain in spinal placement site but is controlled and has not gotten worse. Discussed signs and symptoms of infection, post-dural puncture headaches, post- depression, and if patient experiences increased back discomfort. Encouraged patient if any of those signs or symptoms develop to contact OB/Anesthesia so the patient can be treated accordingly if needed. Patient verbalized understanding. Patient did not voice any questions or concerns at this time. Klaudia Grossman, HOME OFFICE CLAIM SPECIALIST
--- NOTE | 2021-03-14 08:38 | PCM.PNPP ---
- General Info Date of Service: 03/14/21 Admission Dx/Problem (Free Text): Admission Diagnosis/Problem Admission Diagnosis/Problem 03/12/21 12:28 of 39 completed weeks gestation Genital herpes outbreak with a vaginal lesion. Subjective Update: Jade is a 36-year-old G1 now P1 female postoperative day 1 status post primary section. She is doing well today without complaints. Lochia is mild. Tolerating general diet without nausea and vomiting. Ambulating. Alford catheter has been removed. Urinating spontaneously. Pain has been controlled with IV Toradol and oral pain medications. She is breast-feeding and this is going well. Denies signs or symptoms of anemia. Hemoglobin preop: 11.7 post op: 9.9 She had mildly elevated blood pressures preoperatively which have normalized. PIH labs within normal limits. Urine protein creatinine ratio too low to calculate. - Review of Systems General: Reports: No Symptoms Pulmonary: Reports: No Symptoms Cardiovascular: Reports: No Symptoms Gastrointestinal: Reports: No Symptoms Genitourinary: Reports: No Symptoms - General Info Date of Service: 03/14/21 - Patient Data Vital Signs - Most Recent: Last Vital Signs Temp 97.6 F 03/14/21 04:00 Pulse 81 03/14/21 04:06 Resp 15 03/14/21 05:52 BP 114/53 L 03/14/21 04:06 Pulse Ox 100 03/14/21 05:52 Weight - Most Recent: 86.381 kg I&O - Last 24 Hours: Intake & Output 03/13/21 03/14/21 03/14/21 22:59 06:59 14:59 Intake Total 500 800 Output Total 550 1295 Balance -50 -495 Lab Results - Last 24 Hours: Laboratory Results - last 24 hr 03/13/21 03/13/21 03/13/21 Range/Units 06:00 06:00 09:50 Hgb (11.2-15.7) gm/dl Hct (34.1-44.9) % Ur Random Creatinine 26.7 L (30.0-125.0) mg/dL U Random Total Protein < 6.0 (0.0-11.8) mg/dL Protein/Creatinin Ratio TNP RPR Non-reactive (NONREACTIVE) Blood Type A POSITIVE Gel Antibody Screen Negative 03/14/21 Range/Units 07:06 Hgb 9.9 L D (11.2-15.7) gm/dl Hct 30.8 L (34.1-44.9) % Ur Random Creatinine (30.0-125.0) mg/dL U Random Total Protein (0.0-11.8) mg/dL Protein/Creatinin Ratio RPR (NONREACTIVE) Blood Type Gel Antibody Screen Med Orders - Current: Current Medications Diphenhydramine HCl (Diphenhydramine 50 Mg/Ml Sdv) 25 mg IVPUSH Q6H PRN PRN Reason: Itching or Nausea Ephedrine Sulfate (Ephedrine 50 Mg/Ml Sdv) 5 mg IVPUSH SEECOMMENT PRN PRN Reason: Other Oxytocin/Lactated Ringer's (Pitocin In Lr 10 Units/1,000 Ml) 10 unit in 1,000 mls @ 100 mls/hr IV ASDIRECTED [facility] Ibuprofen (Ibuprofen 600 Mg Tab) 600 mg PO Q6H PRN PRN Reason: mild pain or fever Naloxone HCl (Naloxone 0.4 Mg/Ml Sdv) 0.1 mg IVPUSH SEECOMMENT PRN PRN Reason: Respiratory Depression Oxycodone/Acetaminophen (Acetaminophen/Oxycodone 325-5 Mg Tab) 1 tab PO Q4H PRN PRN Reason: Pain (moderate 4-6) Oxycodone/Acetaminophen (Acetaminophen/Oxycodone 325-5 Mg Tab) 2 tab PO Q4H PRN PRN Reason: Pain (severe 7-10) Last Admin: 03/14/21 02:18 Dose: 2 tab Documented by: Discontinued Medications Bupivacaine HCl (Bupivacaine 0.5% 30 Ml Sdv) Confirm Administered Dose 30 ml .ROUTE .STK-MED ONE Stop: 03/13/21 07:28 Last Admin: 03/13/21 08:06 Dose: 8 ml Documented by: Cefazolin Sodium (Cefazolin 1 Gm Vial) Confirm Administered Dose 2 gm .ROUTE .STK-MED ONE Stop: 03/13/21 07:18 Citric Acid/Sodium Citrate (Citric Acid/Sodium Citrate Solution 30 Ml Cup) 30 ml PO ONETIME ONE Stop: 03/13/21 07:01 Last Admin: 03/13/21 07:14 Dose: 30 ml Documented by: Cefazolin Sodium/Dextrose 2 gm (/ Premix) 50 mls @ 100 mls/hr IV ONETIME ONE Stop: 03/13/21 08:14 Last Admin: 03/13/21 16:05 Dose: Not Given Documented by: Lactated Ringer's (Ringers, Lactated) 1,000 mls @ 125 mls/hr IV ASDIRECTED [facility] Last Admin: 03/13/21 07:18 Dose: 125 mls/hr Documented by: Lactated Ringer's (Ringers, Lactated) Confirm Administered Dose 1,000 mls @ as directed .ROUTE .STK-MED ONE Stop: 03/13/21 08:41 Dextrose/Lactated Ringer's (Dextrose 5%-Lactated Ringers) 1,000 mls @ 125 mls/hr IV ASDIRECTED [facility] Stop: 03/13/21 18:57 Last Admin: 03/13/21 11:03 Dose: 125 mls/hr Documented by: Influenza Virus Vaccine (Pharmacy To Dose - Influenza Vaccine) 1 each IM ONETIME ONE Stop: 03/13/21 22:48 Influenza Virus Vaccine (Flu Vacc [id number](6mos Up)/Pf 60 Mcg/0.5 Ml Syringe) 60 mcg IM .ONCE ONE Stop: 03/13/21 23:16 Ketorolac Tromethamine (Ketorolac 30 Mg/Ml Sdv) Confirm Administered Dose 30 mg .ROUTE .STK-MED ONE Stop: 03/13/21 07:23 Ketorolac Tromethamine (Ketorolac 30 Mg/Ml Sdv) 30 mg IVPUSH Q6H [facility] Stop: 03/14/21 02:01 Last Admin: 03/14/21 02:08 Dose: 30 mg Documented by: Metoclopramide HCl (Metoclopramide 10 Mg/2 Ml Sdv) 10 mg IVPUSH ONETIME ONE Stop: 03/13/21 07:01 Last Admin: 03/13/21 07:11 Dose: 10 mg Documented by: Morphine Sulfate (Morphine Pf 10 Mg/10 Ml Sdv) Confirm Administered Dose 10 mg .ROUTE .STK-MED ONE Stop: 03/13/21 07:18 Oxytocin (Oxytocin 10 Units/1 Ml Sdv) Confirm Administered Dose 10 unit .ROUTE .STK-MED ONE Stop: 03/13/21 07:23 Phenylephrine HCl (Phenylephrine 1% 10 Mg/Ml Sdv) Confirm Administered Dose 10 mg .ROUTE .STK-MED ONE Stop: 03/13/21 07:18 Sodium Chloride (Sodium Chloride 0.9% 10 Ml Syringe) 10 ml FLUSH ASDIRECTED PRN PRN Reason: Keep Vein Open - Interaction Disposition, : in Room with Family Infant Interaction: Holding Feeding: Continues to Breastfeed Support Person: - Recovery Exam Fundal Tone: Firm Fundal Level: 1 Fingerbreadths Below Umbilicus Fundal Placement: Midline Lochia Amount: Scant Lochia Color: Brownish Perineum Description: Intact, Minimal Bruising/Swelling Episiotomy/Laceration: None Bladder Status: Indwelling Catheter in Place Urinary Elimination: Indwelling Catheter - Exam General: Alert, Oriented Neck: Supple GI/Abdominal Exam: Soft, Tender (Appropriately for postop state) Extremities: Pedal Edema (Trace to 1+ bilaterally) Skin: Warm, Dry, Intact Wound/Incisions: Healing Well, No Drainage Psy/Mental Status: Alert, Normal Affect, Normal Mood - Problem List & Annotations (1) with 39 completed weeks gestation SNOMED Code(s): 52597818 Code(s): Z3A.39 - 39 WEEKS GESTATION OF Status: Acute Current Visit: Yes (2) Genital herpes affecting SNOMED Code(s): 54182808 Code(s): O98.319 - OTH INFECT W SEXL MODE OF TRANSMISS COMP PREG, UNSP TRI; A60.09 - HERPESVIRAL INFECTION OF OTHER UROGENITAL TRACT Status: Acute Current Visit: Yes (3) Status post primary low transverse section SNOMED Code(s): 446358554, 65757170, 460035078, 801791325, 651091892 Code(s): Z98.891 - HISTORY OF UTERINE SCAR FROM PREVIOUS SURGERY Status: Acute Current Visit: Yes (4) Elevated blood pressure affecting , antepartum SNOMED Code(s): 64837919, 76143706, 673226399 Code(s): O16.9 - UNSPECIFIED MATERNAL HYPERTENSION, UNSPECIFIED TRIMESTER Status: Acute Current Visit: Yes - Problem List Review Problem List Initiated/Reviewed/Updated: Yes - My Orders Last 24 Hours: My Active Orders 03/13/21 08:00 Oxytocin/Lactated Ringers [Pitocin in LR 10 Units/1,000 ML] 10 unit in 1,000 ml IV ASDIRECTED 03/13/21 10:58 Acetaminophen/oxyCODONE [Percocet 325-5 MG] 1 tab PO Q4H PRN Acetaminophen/oxyCODONE [Percocet 325-5 MG] 2 tab PO Q4H PRN Naloxone [Narcan] 0.1 mg IVPUSH SEECOMMENT PRN diphenhydrAMINE [Benadryl] 25 mg IVPUSH Q6H PRN ePHEDrine [ePHEDrine sulfate] 5 mg IVPUSH SEECOMMENT PRN 03/13/21 10:58 Patient Status [ADT] Routine Activity as Tolerated [RC] .Routine Antiembolic Devices [RC] .Routine Communication Order [RC] PER UNIT ROUTINE Communication Order [RC] PER UNIT ROUTINE Communication Order [RC] PER UNIT ROUTINE Intake and Output [RC] Q4HR Notify Provider Intake and Out [RC] ASDIRECTED VTE/DVT Education [RC] PER UNIT ROUTINE Vital Signs [RC] Q1HR Assess Lochia [WOMSER] Per Unit Routine Assess Uterine Involution [WOMSER] Per Unit Routine Breast Pump [WOMSER] Per Unit Routine DVT/VTE Prophylaxis Reflex [OM.PC] Routine Ice Therapy [OM.PC] Per Unit Routine Medication Administration Instruction [OM.PC] Routine 03/13/21 Lunch Regular Diet [DIET] 03/13/21 22:48 Vaccine to be Administered/Admin Charge [RC] ASDIRECTED 03/14/21 08:00 Ibuprofen [Motrin] 600 mg PO Q6H PRN 03/14/21 09:09 Urinary Catheter Removal [RC] Per Unit Routine - Assessment Assessment:: 36-year-old G1 now P1 female POD 1 status post primary section. Doing well. Pain well controlled. Postoperative hemoglobin is not consistent with acute blood loss anemia. - Plan Plan:: Routine postoperative cares. Anticipate discharge POD 2 if doing well. The patient was comfortable with the above plan and all questions were answered. Daphne Grossman MD Family Medicine
[2021-03-14] MEDS: Acetaminophen/oxyCODONE 325-5 MG Tab PO PRN ×3 (11:12→20:46)
[2021-03-14] MEDS: Ibuprofen 600 MG Tab PO PRN ×2 (16:39→22:38)
[2021-03-14] MEDS: Docusate Sodium 100 MG Cap PO PRN (22:38)
[2021-03-15] MEDS: Acetaminophen/oxyCODONE 325-5 MG Tab PO PRN ×3 (04:53→16:07)
--- NOTE | 2021-03-15 07:12 | PCM.PNPP ---
- General Info Date of Service: 03/15/21 Admission Dx/Problem (Free Text): Admission Diagnosis/Problem Admission Diagnosis/Problem 03/12/21 12:28 of 39 completed weeks gestation Genital herpes outbreak with a vaginal lesion. Subjective Update: Jade is a 36-year-old G1 now P1 female postoperative day 2 status post primary section. She is doing well today without complaints. Lochia is mild. Tolerating general diet without nausea and vomiting. Ambulating. Urinating spontaneously. Passing flatus. No BM yet. Taking stool softeners. Pain has been controlled with oral pain medications. She is breast-feeding and this is going well. Denies signs or symptoms of anemia. Feels ready for discharge. - Review of Systems General: Reports: No Symptoms Cardiovascular: Reports: No Symptoms Gastrointestinal: Reports: No Symptoms Genitourinary: Reports: No Symptoms Musculoskeletal: Reports: No Symptoms Skin: Reports: No Symptoms - General Info Date of Service: 03/15/21 - Patient Data Vital Signs - Most Recent: Last Vital Signs Temp 97.9 F 03/15/21 04:53 Pulse 71 03/15/21 04:53 Resp 15 03/15/21 04:53 BP 129/76 03/15/21 04:53 Pulse Ox 98 03/15/21 04:53 Weight - Most Recent: 86.381 kg Lab Results - Last 24 Hours: Laboratory Results - last 24 hr 03/14/21 Range/Units 07:06 Hgb 9.9 L D (11.2-15.7) gm/dl Hct 30.8 L (34.1-44.9) % Med Orders - Current: Current Medications Diphenhydramine HCl (Diphenhydramine 50 Mg/Ml Sdv) 25 mg IVPUSH Q6H PRN PRN Reason: Itching or Nausea Docusate Sodium (Docusate Sodium 100 Mg Cap) 100 mg PO Q12H PRN PRN Reason: Constipation Last Admin: 03/14/21 22:38 Dose: 100 mg Documented by: Ephedrine Sulfate (Ephedrine 50 Mg/Ml Sdv) 5 mg IVPUSH SEECOMMENT PRN PRN Reason: Other Oxytocin/Lactated Ringer's (Pitocin In Lr 10 Units/1,000 Ml) 10 unit in 1,000 mls @ 100 mls/hr IV ASDIRECTED [facility] Ibuprofen (Ibuprofen 600 Mg Tab) 600 mg PO Q6H PRN PRN Reason: mild pain or fever Last Admin: 03/14/21 22:38 Dose: 600 mg Documented by: Naloxone HCl (Naloxone 0.4 Mg/Ml Sdv) 0.1 mg IVPUSH SEECOMMENT PRN PRN Reason: Respiratory Depression Oxycodone/Acetaminophen (Acetaminophen/Oxycodone 325-5 Mg Tab) 1 tab PO Q4H PRN PRN Reason: Pain (moderate 4-6) Last Admin: 03/15/21 04:53 Dose: 1 tab Documented by: Oxycodone/Acetaminophen (Acetaminophen/Oxycodone 325-5 Mg Tab) 2 tab PO Q4H PRN PRN Reason: Pain (severe 7-10) Last Admin: 03/14/21 02:18 Dose: 2 tab Documented by: Discontinued Medications Bupivacaine HCl (Bupivacaine 0.5% 30 Ml Sdv) Confirm Administered Dose 30 ml .ROUTE .STK-MED ONE Stop: 03/13/21 07:28 Last Admin: 03/13/21 08:06 Dose: 8 ml Documented by: Cefazolin Sodium (Cefazolin 1 Gm Vial) Confirm Administered Dose 2 gm .ROUTE .STK-MED ONE Stop: 03/13/21 07:18 Citric Acid/Sodium Citrate (Citric Acid/Sodium Citrate Solution 30 Ml Cup) 30 ml PO ONETIME ONE Stop: 03/13/21 07:01 Last Admin: 03/13/21 07:14 Dose: 30 ml Documented by: Cefazolin Sodium/Dextrose 2 gm (/ Premix) 50 mls @ 100 mls/hr IV ONETIME ONE Stop: 03/13/21 08:14 Last Admin: 03/13/21 16:05 Dose: Not Given Documented by: Lactated Ringer's (Ringers, Lactated) 1,000 mls @ 125 mls/hr IV ASDIRECTED [facility] Last Admin: 03/13/21 07:18 Dose: 125 mls/hr Documented by: Lactated Ringer's (Ringers, Lactated) Confirm Administered Dose 1,000 mls @ as directed .ROUTE .STK-MED ONE Stop: 03/13/21 08:41 Dextrose/Lactated Ringer's (Dextrose 5%-Lactated Ringers) 1,000 mls @ 125 mls/hr IV ASDIRECTED [facility] Stop: 03/13/21 18:57 Last Admin: 03/13/21 11:03 Dose: 125 mls/hr Documented by: Influenza Virus Vaccine (Pharmacy To Dose - Influenza Vaccine) 1 each IM ONETIME ONE Stop: 03/13/21 22:48 Influenza Virus Vaccine (Flu Vacc [id number](6mos Up)/Pf 60 Mcg/0.5 Ml Syringe) 60 mcg IM .ONCE ONE Stop: 03/13/21 23:16 Ketorolac Tromethamine (Ketorolac 30 Mg/Ml Sdv) Confirm Administered Dose 30 mg .ROUTE .STK-MED ONE Stop: 03/13/21 07:23 Ketorolac Tromethamine (Ketorolac 30 Mg/Ml Sdv) 30 mg IVPUSH Q6H [facility] Stop: 03/14/21 02:01 Last Admin: 03/14/21 02:08 Dose: 30 mg Documented by: Metoclopramide HCl (Metoclopramide 10 Mg/2 Ml Sdv) 10 mg IVPUSH ONETIME ONE Stop: 03/13/21 07:01 Last Admin: 03/13/21 07:11 Dose: 10 mg Documented by: Morphine Sulfate (Morphine Pf 10 Mg/10 Ml Sdv) Confirm Administered Dose 10 mg .ROUTE .STK-MED ONE Stop: 03/13/21 07:18 Oxytocin (Oxytocin 10 Units/1 Ml Sdv) Confirm Administered Dose 10 unit .ROUTE .STK-MED ONE Stop: 03/13/21 07:23 Phenylephrine HCl (Phenylephrine 1% 10 Mg/Ml Sdv) Confirm Administered Dose 10 mg .ROUTE .STK-MED ONE Stop: 03/13/21 07:18 Sodium Chloride (Sodium Chloride 0.9% 10 Ml Syringe) 10 ml FLUSH ASDIRECTED PRN PRN Reason: Keep Vein Open - Interaction Disposition, : in Room with Family Interaction: Holding Infant Infant Feeding: Continues to Breastfeed Support Person: - Recovery Exam Fundal Tone: Firm Fundal Level: 1 Fingerbreadths Below Umbilicus Fundal Placement: Midline Lochia Amount: Small Lochia Color: Rubra/Red Perineum Description: Intact, Minimal Bruising/Swelling Episiotomy/Laceration: None Bladder Status: Nonpalpable, Voiding Urinary Elimination: Voided - Exam General: Alert, Oriented Neck: Supple Lungs: Clear to Auscultation, Normal Respiratory Effort. No: Crackles, Rales, Wheezing Cardiovascular: Regular Rate, Regular Rhythm, No Murmurs GI/Abdominal Exam: Normal Bowel Sounds, Soft, Tender (appropriately) Extremities: Normal Inspection, Pedal Edema (trace bilaterally) Skin: Warm, Dry Wound/Incisions: Healing Well, No Drainage Psy/Mental Status: Alert, Normal Affect, Normal Mood - Problem List & Annotations (1) with 39 completed weeks gestation SNOMED Code(s): 34894028 Code(s): Z3A.39 - 39 WEEKS GESTATION OF Status: Acute Current Visit: Yes (2) Genital herpes affecting SNOMED Code(s): 11274517 Code(s): O98.319 - OTH INFECT W SEXL MODE OF TRANSMISS COMP PREG, UNSP TRI; A60.09 - HERPESVIRAL INFECTION OF OTHER UROGENITAL TRACT Status: Acute Current Visit: Yes (3) Status post primary low transverse section SNOMED Code(s): 120541370, 42116068, 302722252, 997548330, 968024538 Code(s): Z98.891 - HISTORY OF UTERINE SCAR FROM PREVIOUS SURGERY Status: Acute Current Visit: Yes (4) Elevated blood pressure affecting , antepartum SNOMED Code(s): 90829626, 45324603, 563791199 Code(s): O16.9 - UNSPECIFIED MATERNAL HYPERTENSION, UNSPECIFIED TRIMESTER Status: Acute Current Visit: Yes - Problem List Review Problem List Initiated/Reviewed/Updated: Yes - My Orders Last 24 Hours: My Active Orders 03/14/21 08:00 Ibuprofen [Motrin] 600 mg PO Q6H PRN - Assessment Assessment:: 36-year-old G1 now P1 female POD 2 status post primary section. Doing well. Pain well controlled. Bowel function has returned. - Plan Plan:: Discharge to home. Return criteria discussed including fever, chills, heavy bleeding, increased pain, foul smelling discharge, purulent drainage from incision, or other concerning symptoms. Limit lifting to 10-20lb. The patient was comfortable with the above plan and all questions were answered. Daphne Grossman MD Family Medicine
[2021-03-15] MEDS: Ibuprofen 600 MG Tab PO PRN ×2 (12:03→20:01)
[2021-03-15] MEDS: Docusate Sodium 100 MG Cap PO PRN (16:05)
[2021-03-16] MEDS: Acetaminophen/oxyCODONE 325-5 MG Tab PO PRN (04:27)
--- NOTE | 2021-03-16 08:00 | PCM.DCSUM1 ---
Discharge Summary - Hospital Course Free Text/Narrative:: Jade is a 36 yo G1 now P1 female who is POD 3 status post vacuum-assisted primary section for active genital herpes lesion. section went well without complication. Postoperative course was unremarkable. She is breast-feeding and it is going well. On day of discharge her lochia is mild, bowel function has returned, her pain is well controlled with oral pain medication, and she is urinating spontaneously. Today, she denies fever, chil ls, chest pain, shortness of breath. Leg swelling is improving. No new complaints. She states she is ready for discharge. Diagnosis: Stroke: No - Discharge Data Discharge Date: 03/16/21 Discharge Disposition: Home, Self-Care 01 Condition: Good - Referral to Home Health Primary Care Physician: Tammy Graves MD - Discharge Diagnosis/Problem(s) (1) with 39 completed weeks gestation SNOMED Code(s): 01690356 ICD Code: Z3A.39 - 39 WEEKS GESTATION OF Status: Acute Current Visit: Yes (2) Genital herpes affecting SNOMED Code(s): 59266016 ICD Code: O98.319 - OTH INFECT W SEXL MODE OF TRANSMISS COMP PREG, UNSP TRI; A60.09 - HERPESVIRAL INFECTION OF OTHER UROGENITAL TRACT Status: Acute Current Visit: Yes (3) Status post primary low transverse section SNOMED Code(s): 382390845, 24931051, 108265133, 152078002, 370558640 ICD Code: Z98.891 - HISTORY OF UTERINE SCAR FROM PREVIOUS SURGERY Status: Acute Current Visit: Yes (4) Elevated blood pressure affecting , antepartum SNOMED Code(s): 49961495, 99687787, 384368026 ICD Code: O16.9 - UNSPECIFIED MATERNAL HYPERTENSION, UNSPECIFIED TRIMESTER Status: Acute Current Visit: Yes - Patient Summary/Data Operative Procedure(s) Performed: Primary vacuum-assisted section Complications: none - Patient Instructions Diet: Regular Diet as Tolerated Activity: Apply Ice, As Tolerated, No Lifting Over 20 Pounds Activity, Other: Nothing in the vagina for 6 weeks Driving: Do Not Drive (While taking narcotic medications or having significant pain) Showering/Bathing: May Shower Wound/Incision Care: Keep Operative Site/Wound Site Clean and Dry Notify Provider of: Fever, Increased Pain, Swelling and Redness, Drainage, Nausea and/or Vomiting Other/Special Instructions: Please contact your physician's office if you note any bleeding or pus coming from the abdominal incision. Please contact your physician's office if you have heavy vaginal bleeding enough to soak a pad in less than an hour for several hours. Monitor for any signs of an infection in the breasts with severe pain or redness of the breast. - Discharge Plan *PRESCRIPTION DRUG MONITORING PROGRAM REVIEWED*: Yes *COPY OF PRESCRIPTION DRUG MONITORING REPORT IN PATIENT BARBIE: No Prescriptions/Med Rec: Acetaminophen/oxyCODONE [Percocet 325-5 MG] 1 each PO Q4HR PRN #20 tab PRN Reason: Pain (Severe 7-10) oxyCODONE HCl/Acetaminophen [Percocet 5-325 mg Tablet] 1 each PO Q4HR #20 tablet Home Medications: Home Meds Levothyroxine Sodium [Synthroid] 112 mcg PO DAILY 11/26/17 [History] valACYclovir [Valtrex] 1,000 mg PO BID 11/26/17 [History] Pnv No.95/Ferrous Fum/Folic AC [ Tablet] 1 each PO DAILY 03/12/21 [History] Acetaminophen/oxyCODONE [Percocet 325-5 MG] 1 each PO Q4HR PRN #20 tab 03/15/21 [Rx] oxyCODONE HCl/Acetaminophen [Percocet 5-325 mg Tablet] 1 each PO Q4HR #20 tablet 03/15/21 [Rx] Oxygen Therapy Mode: Room Air Patient Handouts: Delivery, Care After, Tips for a Good Latch Referrals: Daphne Grossman MD [Physician] - (Follow-up in 2 weeks for routine postoperative visit or earlier as needed.) - Discharge Summary/Plan Comment DC Time >30 min.: No Total # of Minutes for Discharge Time: 20 Discharge Summary/Plan Comment: Discharge patient to home. Return criteria discussed in great detail including heavy bleeding, pain out of proportion, worsening headaches, vision changes, leg swelling, foul-smelling lochia, fever, chills, purulent drainage from the incision. Follow-up with myself in 2 weeks for postoperative check and Dr. Graves in 6 weeks for exam. The patient was comfortable with the above plan and all questions were answered. Daphne Grossman MD Family Medicine - General Info Date of Service: 03/16/21 - Review of Systems Systems Review Comment: A comprehensive review of systems was performed and is negative except for those mentioned in the HPI. - Patient Data Vitals - Most Recent: Last Vital Signs Temp 97.7 F 03/16/21 04:24 Pulse 69 03/16/21 04:24 Resp 15 03/16/21 04:24 BP 141/93 H 03/16/21 04:24 Pulse Ox 98 03/16/21 04:24 Weight - Most Recent: 86.381 kg Med Orders - Current: Current Medications Diphenhydramine HCl (Diphenhydramine 50 Mg/Ml Sdv) 25 mg IVPUSH Q6H PRN PRN Reason: Itching or Nausea Docusate Sodium (Docusate Sodium 100 Mg Cap) 100 mg PO Q12H PRN PRN Reason: Constipation Last Admin: 03/15/21 16:05 Dose: 100 mg Documented by: Ephedrine Sulfate (Ephedrine 50 Mg/Ml Sdv) 5 mg IVPUSH SEECOMMENT PRN PRN Reason: Other Oxytocin/Lactated Ringer's (Pitocin In Lr 10 Units/1,000 Ml) 10 unit in 1,000 mls @ 100 mls/hr IV ASDIRECTED [facility] Ibuprofen (Ibuprofen 600 Mg Tab) 600 mg PO Q6H PRN PRN Reason: mild pain or fever Last Admin: 03/15/21 20:01 Dose: 600 mg Documented by: Naloxone HCl (Naloxone 0.4 Mg/Ml Sdv) 0.1 mg IVPUSH SEECOMMENT PRN PRN Reason: Respiratory Depression Oxycodone/Acetaminophen (Acetaminophen/Oxycodone 325-5 Mg Tab) 1 tab PO Q4H PRN PRN Reason: Pain (moderate 4-6) Last Admin: 03/16/21 04:27 Dose: 1 tab Documented by: Oxycodone/Acetaminophen (Acetaminophen/Oxycodone 325-5 Mg Tab) 2 tab PO Q4H PRN PRN Reason: Pain (severe 7-10) Last Admin: 03/14/21 02:18 Dose: 2 tab Documented by: Discontinued Medications Bupivacaine HCl (Bupivacaine 0.5% 30 Ml Sdv) Confirm Administered Dose 30 ml .ROUTE .STK-MED ONE Stop: 03/13/21 07:28 Last Admin: 03/13/21 08:06 Dose: 8 ml Documented by: Cefazolin Sodium (Cefazolin 1 Gm Vial) Confirm Administered Dose 2 gm .ROUTE .STK-MED ONE Stop: 03/13/21 07:18 Citric Acid/Sodium Citrate (Citric Acid/Sodium Citrate Solution 30 Ml Cup) 30 ml PO ONETIME ONE Stop: 03/13/21 07:01 Last Admin: 03/13/21 07:14 Dose: 30 ml Documented by: Cefazolin Sodium/Dextrose 2 gm (/ Premix) 50 mls @ 100 mls/hr IV ONETIME ONE Stop: 03/13/21 08:14 Last Admin: 03/13/21 16:05 Dose: Not Given Documented by: Lactated Ringer's (Ringers, Lactated) 1,000 mls @ 125 mls/hr IV ASDIRECTED [facility] Last Admin: 03/13/21 07:18 Dose: 125 mls/hr Documented by: Lactated Ringer's (Ringers, Lactated) Confirm Administered Dose 1,000 mls @ as directed .ROUTE .[facility] ONE Stop: 03/13/21 08:41 Dextrose/Lactated Ringer's (Dextrose 5%-Lactated Ringers) 1,000 mls @ 125 mls/hr IV ASDIRECTED [facility] Stop: 03/13/21 18:57 Last Admin: 03/13/21 11:03 Dose: 125 mls/hr Documented by: Influenza Virus Vaccine (Pharmacy To Dose - Influenza Vaccine) 1 each IM ONETIME ONE Stop: 03/13/21 22:48 Influenza Virus Vaccine (Flu Vacc [id number](6mos Up)/Pf 60 Mcg/0.5 Ml Syringe) 60 mcg IM .ONCE ONE Stop: 03/13/21 23:16 Ketorolac Tromethamine (Ketorolac 30 Mg/Ml Sdv) Confirm Administered Dose 30 mg .ROUTE .STK-MED ONE Stop: 03/13/21 07:23 Ketorolac Tromethamine (Ketorolac 30 Mg/Ml Sdv) 30 mg IVPUSH Q6H [facility] Stop: 03/14/21 02:01 Last Admin: 03/14/21 02:08 Dose: 30 mg Documented by: Metoclopramide HCl (Metoclopramide 10 Mg/2 Ml Sdv) 10 mg IVPUSH ONETIME ONE Stop: 03/13/21 07:01 Last Admin: 03/13/21 07:11 Dose: 10 mg Documented by: Morphine Sulfate (Morphine Pf 10 Mg/10 Ml Sdv) Confirm Administered Dose 10 mg .ROUTE .STK-MED ONE Stop: 03/13/21 07:18 Oxytocin (Oxytocin 10 Units/1 Ml Sdv) Confirm Administered Dose 10 unit .ROUTE .STK-MED ONE Stop: 03/13/21 07:23 Phenylephrine HCl (Phenylephrine 1% 10 Mg/Ml Sdv) Confirm Administered Dose 10 mg .ROUTE .STK-MED ONE Stop: 03/13/21 07:18 Sodium Chloride (Sodium Chloride 0.9% 10 Ml Syringe) 10 ml FLUSH ASDIRECTED PRN PRN Reason: Keep Vein Open - Exam General: Reports: Alert, Oriented Neck: Reports: Supple Lungs: Reports: Clear to Auscultation, Normal Respiratory Effort Cardiovascular: Reports: Regular Rate, Regular Rhythm, No Murmurs GI/Abdominal Exam: Normal Bowel Sounds, Soft, Tender (Appropriate) Extremities: No Pedal Edema Skin: Reports: Warm, Dry, Intact Wound/Incisions: Reports: Healing Well, No Drainage Psy/Mental Status: Reports: Alert, Normal Affect, Normal Mood
[2021-03-16] MEDS: Ibuprofen 600 MG Tab PO PRN (10:40)
[2021-03-16] MEDS ORDERED: Magnesium Hydroxide 400 MG/5 ML Susp 30 ML Cup PO ONE (12:02)
[2021-03-16] MEDS ORDERED: FLU Vacc QS2021-22 36MOS UP/PF 60 MCG/0.5 ML Syringe IM ONE (12:30)
== END 2021-03-16 15:39 | disposition home or self-care (01) | DRG 788 ==
LOC: JD.OB 05:35
PROVIDERS: ADMIT Obstetrics & Gynecology; ATTEND Obstetrics & Gynecology
PROC: 10D00Z1 Extraction of Products of Conception, Low, Open Approach (ICD-10-PCS; principal; 2021-03-13)
PROC: 3E02340 Introduction of Influenza Vaccine into Muscle, Percutaneous Approach (ICD-10-PCS; 2021-03-16)
DX: O98.32 Other infections with a predominantly sexual mode of transmission complicating childbirth (principal); A60.09 Herpesviral infection of other urogenital tract; O16.4 Unspecified maternal hypertension, complicating childbirth; O99.284 Endocrine, nutritional and metabolic diseases complicating childbirth; E03.9 Hypothyroidism, unspecified; O99.62 Diseases of the digestive system complicating childbirth; K21.9 Gastro-esophageal reflux disease without esophagitis; Z3A.39 39 weeks gestation of pregnancy; Z23 Encounter for immunization; Z37.0 Single live birth; Z79.890 Hormone replacement therapy
CPT/HCPCS: 01961; 36415; 59025; 80053; 82570; 84156; 85014; 85018; 85025; 86592; 86850; 86900; 86901; 90686; A9270-GY; G0008; J0690; J1885; J2270; J2370; J2590; J2765; J3490; J7120; J7121

== ENCOUNTER 2022-10-18 15:22 | Inpatient (IN) | payer OTHER ==
[2022-10-18] MEDS ORDERED: Lidocaine 1% 50 ML MDV INJECT ONE (15:48)
[2022-10-18] MEDS ORDERED: Ondansetron 4 MG/2 ML SDV IVPUSH PRN (15:48)
[2022-10-18] MEDS ORDERED: Oxytocin/Lactated Ringers 10 UNIT/1,000 ML BAG IV SCH ×2 (16:00)
[2022-10-18 16:30] LABS: BASOPHILS ABSOLUTE AUTO 0.02 K/mm3 (0.01-0.08); BASOPHILS PERCENT AUTO 0.2 % (0.1-1.2); EOSINOPHILS ABSOLUTE AUTO 0.19 K/mm3 (0.04-0.36); EOSINOPHILS PERCENT AUTO 1.7 (0.7-5.8); HEMATOCRIT 36.2 % (34.1-44.9); HEMOGLOBIN 12.1 gm/dl (11.2-15.7); IMMATURE GRAN ABSOLUTE AUTO 0.04 K/mm3 (0.00-0.10); IMMATURE GRAN PERCENT AUTO 0.4 % (<=1.0); LYMPHOCYTES ABSOLUTE AUTO 2.54 K/mm3 (1.18-3.74); MEAN CORPUSCULAR HEMOGLOBIN 30.3 pg (25.6-32.2); MEAN CORPUSCULAR HGB CONC 33.4 g/dl (32.2-35.5); MEAN CORPUSCULAR VOLUME 90.5 fl (79.4-94.8); MEAN PLATELET VOLUME 10.8 fl (9.4-12.3); MONOCYTES ABSOLUTE AUTO 0.77 K/mm3 (0.24-0.36); NEUTROPHILS ABSOLUTE AUTO 7.47 K/mm3 (1.56-6.13); NEUTROPHILS PERCENT AUTO 67.7 % (34.0-71.1); PLATELET COUNT,PLT 192 K/mm3 (182-369); WHITE BLOOD CELL COUNT,WBC 11.03 K/mm3 (3.98-10.04)
[2022-10-18] MEDS ORDERED: Acetaminophen 325 MG Tab PO PRN (16:50)
[2022-10-18] MEDS: Nalbuphine 10 MG/0.5 ML Syringe IVPUSH PRN (21:01)
[2022-10-18] MEDS: Sodium Chloride 0.9% 10 ML Syringe FLUSH SCH (21:46)
[2022-10-19] MEDS ORDERED: Ropivacaine 0.2% PF 2 MG/ML 20 ML SDV ONE
[2022-10-19] MEDS: Nalbuphine 10 MG/0.5 ML Syringe IVPUSH PRN ×2 (00:56→12:43)
[2022-10-19] MEDS: Lactated Ringers 1,000 ML IV SCH ×4 (05:56→19:27)
[2022-10-19] MEDS ORDERED: fentaNYL 100 MCG/2 ML SDV EPIDUR PRN (06:26)
[2022-10-19] MEDS ORDERED: diphenhydrAMINE 50 MG/ML SDV IVPUSH PRN ×2 (06:26→22:32)
[2022-10-19] MEDS ORDERED: ePHEDrine 50 MG/ML SDV IVPUSH PRN ×2 (06:26→22:32)
[2022-10-19] MEDS: Bupivacaine/fentaNYL/NS 100 ML Bag EPIDUR PRN ×2 (06:48→11:56)
[2022-10-19] MEDS ORDERED: Famotidine 10 MG Tab PO SCH (09:00)
[2022-10-19 13:13] LABS: A/G RATIO 0.7 (1-2); ALBUMIN 2.6 g/dl (3.4-5.0); ANION GAP 15.1 (5-15); BUN/CREATININE RATIO 18.6 (14-18); CALCIUM 8.2 mg/dL (8.5-10.1); CREATININE 0.7 mg/dL (0.55-1.02); EST CRCL DRUG DOSING (CG) 100.94 mL/min; POTASSIUM,K 4.1 mEq/L (3.5-5.1); PROTEIN TOTAL,TP 6.5 g/dl (6.4-8.2)
[2022-10-19 13:37] LABS: CREATININE,URINE RAND 173.3 mg/dL (30.0-125.0); PROTEIN CREATININE RATIO,URINE 489.9 mg/g (0-149); PROTEIN,URINE RANDOM 84.9 mg/dL (0.0-11.8)
[2022-10-19] MEDS ORDERED: Ropivacaine 200 MG in Premix Bag 1 BAG EPIDUR SCH (17:45)
[2022-10-19] MEDS: Sodium Chloride 0.9% 10 ML Syringe FLUSH SCH (19:12)
[2022-10-19] MEDS ORDERED: Metoclopramide 10 MG/2 ML SDV IVPUSH ONE (20:25)
[2022-10-19] MEDS ORDERED: ceFAZolin 2 GM in Sodium Chloride 0.9% 50 ML IV ONE (20:25)
[2022-10-19] MEDS ORDERED: Citric Acid/Sodium Citrate Solution 30 ML Cup PO ONE (20:25)
[2022-10-19] MEDS ORDERED: Azithromycin 500 MG in Sodium Chloride 0.9% 250 ML IV ONE (20:25)
[2022-10-19] MEDS ORDERED: ceFAZolin 2 GM Vial ONE (20:35)
[2022-10-19] MEDS ORDERED: Morphine PF 1 MG/ML Amp ONE (20:35)
[2022-10-19] MEDS ORDERED: Oxytocin 10 Units/1 ML SDV ONE ×3 (20:35→21:27)
[2022-10-19] MEDS ORDERED: Ondansetron 4 MG/2 ML SDV ONE (20:35)
[2022-10-19] MEDS ORDERED: Lidocaine 2% with EPINEPHrine 1:200,000 20 ML SDV ONE (20:37)
[2022-10-19] MEDS ORDERED: Misoprostol 200 MCG Tab ONE (21:12)
[2022-10-19] MEDS ORDERED: Labetalol 100 MG/20 ML MDV ONE (21:53)
[2022-10-19] MEDS ORDERED: Labetalol 100 MG/20 ML MDV IVPUSH ONE ×2 (21:55)
[2022-10-19] MEDS ORDERED: LORazepam 2 MG/ML SDV IVPUSH ONE (22:25)
[2022-10-19 22:28] LABS: HEMATOCRIT 36.7 % (34.1-44.9); HEMOGLOBIN 11.9 gm/dl (11.2-15.7); MEAN CORPUSCULAR HEMOGLOBIN 30.1 pg (25.6-32.2); MEAN CORPUSCULAR HGB CONC 32.4 g/dl (32.2-35.5); MEAN CORPUSCULAR VOLUME 92.7 fl (79.4-94.8); MEAN PLATELET VOLUME 10.7 fl (9.4-12.3); PLATELET COUNT,PLT 188 K/mm3 (182-369); RED BLOOD CELL COUNT 3.96 M/mm3 (3.98-5.22); WHITE BLOOD CELL COUNT,WBC 21.61 K/mm3 (3.98-10.04)
[2022-10-19] MEDS ORDERED: Naloxone 0.4 MG/ML SDV IVPUSH PRN (22:32)
[2022-10-19] MEDS ORDERED: Dextrose 5%-Lactated Ringers 1,000 ML IV SCH (22:32)
[2022-10-19] MEDS ORDERED: Sodium Chloride 0.9% 10 ML Syringe FLUSH PRN (22:32)
[2022-10-19] MEDS ORDERED: Ondansetron 4 MG/2 ML SDV IV PRN (22:32)
[2022-10-19] MEDS ORDERED: Docusate Sodium 100 MG Cap PO PRN (22:32)
[2022-10-19] MEDS ORDERED: Acetaminophen 325 MG Tab PO ONE (22:40)
[2022-10-19] MEDS ORDERED: Acetaminophen 325 MG Tab ONE (22:43)
[2022-10-19 22:53] LABS: A/G RATIO 0.6 (1-2); ALBUMIN 2.4 g/dl (3.4-5.0); BILIRUBIN TOTAL 1.2 mg/dL (0.2-1.0); BUN/CREATININE RATIO 10.9 (14-18); CALCIUM 9.2 mg/dL (8.5-10.1); CREATININE 1.1 mg/dL (0.55-1.02); EST CRCL DRUG DOSING (CG) 64.23 mL/min; PROTEIN TOTAL,TP 6.3 g/dl (6.4-8.2)
[2022-10-20] MEDS: Acetaminophen/oxyCODONE 325-5 MG Tab PO PRN ×3 (03:56→20:02)
[2022-10-20] MEDS: Ketorolac 30 MG/ML SDV IVPUSH SCH ×3 (04:35→15:54)
[2022-10-20] MEDS ORDERED: Levothyroxine 100 MCG Tab PO SCH (09:00)
[2022-10-20 20:00] LABS: CREATININE 0.8 mg/dL (0.55-1.02); EST CRCL DRUG DOSING (CG) 88.32 mL/min
[2022-10-20] MEDS ORDERED: Ibuprofen 600 MG Tab PO PRN (22:00)
[2022-10-21] MEDS: Acetaminophen/oxyCODONE 325-5 MG Tab PO PRN ×2 (03:03→08:20)
== END 2022-10-21 12:06 | disposition home or self-care (01) | DRG 787 ==
LOC: JD.OBCHECK 15:22 → JD.OB 15:26 → JD.OBCHECK 15:51 → OBSVTOIN 10-19 21:05 → JD.OB 10-19 21:06
PROVIDERS: ADMIT Family Medicine; ATTEND Obstetrics & Gynecology
PROC: 10D00Z1 Extraction of Products of Conception, Low, Open Approach (ICD-10-PCS; principal; 2022-10-19)
PROC: 3E0R3BZ Introduction of Anesthetic Agent into Spinal Canal, Percutaneous Approach (ICD-10-PCS; 2022-10-19)
PROC: 00HU33Z Insertion of Infusion Device into Spinal Canal, Percutaneous Approach (ICD-10-PCS; 2022-10-19)
DX: O34.211 Maternal care for low transverse scar from previous cesarean delivery (principal); O98.32 Other infections with a predominantly sexual mode of transmission complicating childbirth; Z37.0 Single live birth; Z3A.40 40 weeks gestation of pregnancy; A60.09 Herpesviral infection of other urogenital tract; O99.62 Diseases of the digestive system complicating childbirth; K21.9 Gastro-esophageal reflux disease without esophagitis; O99.284 Endocrine, nutritional and metabolic diseases complicating childbirth; E03.9 Hypothyroidism, unspecified; O76 Abnormality in fetal heart rate and rhythm complicating labor and delivery; O62.1 Secondary uterine inertia; O14.04 Mild to moderate pre-eclampsia, complicating childbirth; Z79.890 Hormone replacement therapy
CPT/HCPCS: 01968; 36415; 51702; 59025; 80053; 82565; 82570; 84156; 85025; 85027; 86592; 86850; 86900; 86901; A9270-GY; C1726; J0456; J0690; J1885; J2060; J2274; J2300; J2405; J2590; J2765; J2795; J3490; J7050; J7120; J7121